=== PATIENT | female | born 1945 | race Two or more races ===

== ENCOUNTER 2017-05-08 15:41 | Observation (INO) | payer MEDICARE, MEDICAID ==
[2017-05-08] MEDS ORDERED: Aspirin 81 MG Tab.Chew PO ONE (15:59)
[2017-05-08] MEDS ORDERED: Sodium Chloride 0.9% 1,000 ML IV ONE (16:21)
--- NOTE | 2017-05-08 16:42 | EDM.PDOC ---
ED HPI GENERAL MEDICAL PROBLEM - General Chief Complaint: Chest Pain Stated Complaint: FELL--CHEST PAIN Time Seen by Provider: 05/08/17 15:45 Source of Information: Reports: Family, Field Assessor, Alf Records History Limitations: Reports: Altered Mental Status (dementia), Language Barrier - History of Present Illness INITIAL COMMENTS - FREE TEXT/NARRATIVE: 71-year-old female presents to emergency room brought in by regular vehicle for evaluation of not feeling well for the last 3 days, dizziness complaints and near syncopal episode without loss of consciousness. Patient has been in the halfway for approximately 4 years the last 3 year she's been at [facility]. She has significant history of dementia and early Alzheimer's and diabetes, chronic renal disease. She felt hungry earlier this afternoon and felt lightheaded and dizziness walking with her walker to the cafeteria. She is instructed to sit down. She did not fall or have the syncopal episode. She is brought in regular vehicle to the ER for further evaluation. She is a poor historian speak fluent Citizen [place]. Her niece works at the hospital translates most of her history for her which is not well known. Onset: Gradual Onset Date: 05/06/17 Duration: Day(s):, Waxing/Waning Location: Reports: Generalized Quality: Reports: Ache Severity: Moderate Improves with: Reports: None Worsens with: Reports: None Associated Symptoms: Reports: Chest Pain, Headaches, Other (dizziness) - Related Data Allergies Allergy/AdvReac Type Severity Reaction Status Date / Time No Known Drug Allergies Allergy Cannot Verified 08/25/16 08:33 Remember Home Meds: Home Meds ARIPiprazole [Abilify] 5 mg PO BEDTIME 06/01/14 [History] Acetaminophen [Non-Aspirin] 325 - 650 mg PO Q6HR PRN 06/01/14 [History] Doxercalciferol [Hectorol] 0.5 mcg PO ASDIRECTED 06/01/14 [History] Esomeprazole Magnesium [Nexium 24Hr] 40 mg PO DAILY 06/01/14 [History] Fenofibrate Nanocrystallized [Tricor] 48 mg PO BEDTIME 06/01/14 [History] Insulin Lispro [Humalog] 0 unit SQ ASDIRECTED 06/01/14 [History] Insulin Lispro [Humalog] 0 unit SUBCUT TID PRN 06/01/14 [History] Levothyroxine 25 mcg PO ACBRK 06/01/14 [History] Magnesium Hydroxide [Milk of Magnesia] 30 ml PO DAILY PRN 06/01/14 [History] Sennosides [Senokot] 2 tab PO DAILY 06/01/14 [History] Venlafaxine HCl [Venlafaxine ER] 300 mg PO DAILY 06/01/14 [History] atorvaSTATin [Lipitor] 40 mg PO DAILY@1700 06/01/14 [History] clonazePAM [Klonopin] 1 mg PO BID 06/01/14 [History] Phytonadione [Vitamin K] 100 mcg PO DAILY@1700 #0 06/03/14 [Rx] Atenolol 12.5 mg PO DAILY 08/24/16 [History] Cholecalciferol (Vitamin D3) [Vitamin D3] 2,000 unit PO DAILY 08/24/16 [History] Donepezil [Aricept] 10 mg PO BEDTIME 08/24/16 [History] Insulin Detemir [Levemir Flextouch] 45 unit SQ BID 08/24/16 [History] Melatonin/Pyridoxine HCl (B6) [Melatonin 3 mg Tablet] 1 each PO BEDTIME [History] Memantine [Namenda] 10 mg PO DAILY 08/24/16 [History] Polyethylene Glycol 3350 [MiraLAX] 17 gm PO DAILY 08/24/16 [History] Warfarin [Coumadin] 5 mg PO ASDIRECTED 08/24/16 [History] traMADol [Ultram] 50 mg PO Q6H PRN 08/24/16 [History] Past Medical History Cardiovascular History: Reports: Afib, CAD, Heart Valve Replacement, High Cholesterol, Hypertension Other Genitourinary History: chronic renal failure Neurological History: Reports: Alzheimers Disease Psychiatric History: Reports: Alzheimers Disease, Dementia, Depression Social & Family History - Tobacco Use Smoking Status *Q: Never Smoker - Caffeine Use Caffeine Use: Reports: Coffee, Tea - Alcohol Use Days Per Week of Alcohol Use: 0 - Recreational Drug Use Recreational Drug Use: No ED ROS GENERAL - Review of Systems Review Of Systems: ROS reveals no pertinent complaints other than HPI. Constitutional: Denies: Fever, Chills, Diaphoresis Respiratory: Reports: Shortness of Breath Cardiovascular: Reports: Chest Pain, Blood Pressure Problem Endocrine: Reports: High Glucose : Reports: Incontinence Neurological: Reports: Confusion, Other (dizziness) Psychiatric: Reports: Agitation, Depression Hematologic/Lymphatic: Reports: Anemia, Easy Bleeding Immunologic: Reports: No Symptoms ED EXAM, DIZZINESS - Physical Exam Exam: See Below Exam Limited By: Language Barrier General Appearance: Alert, WD/WN, No Apparent Distress Eye Exam: Bilateral Eye: EOMI, PERRL Ears: Normal External Exam, Normal Canal, Hearing Grossly Normal, Normal TMs Nose: Normal Inspection Throat/Mouth: Normal Inspection, Normal Lips, Normal Voice Head Exam: Atraumatic, Normocephalic Neck: Normal Inspection, Supple, Non-Tender. No: Carotid Bruit, Lymphadenopathy (L), Lymphadenopathy (R) Respiratory/Chest: No Respiratory Distress, Lungs Clear Cardiovascular: Normal Peripheral Pulses, Regular Rate, Rhythm, Systolic Murmur GI/Abdominal: Normal Bowel Sounds, Soft, Non-Tender EKG INTERPRETATION EKG Date: 05/08/17 Rhythm: NSR [place]: LAD-Left [place] Deviation P-Wave: Present QRS: LBBB ST-T: Normal QT: Normal Comparison: NA - No Prior EKG EKG Interpretation Comments: 1. Normal sinus rhythm 2. Left axis deviation 3. Left bundle branch block 4. Abnormal ECG Course - Vital Signs Last Recorded V/S: Last Vital Signs Temp 96.9 F 05/08/17 16:14 Pulse 60 05/08/17 16:14 Resp 18 05/08/17 16:14 BP 153/51 H 05/08/17 16:14 Pulse Ox 93 L 05/08/17 16:14 - Orders/Labs/Meds Orders: Active Orders 24 hr Category Date Time Status EKG Documentation Completion [RC] ASDIRECTED Care 05/08/17 15:53 Active CXR [Chest 2V] [CR] Stat Exams 05/08/17 15:52 Taken EKG 12 Lead [EK] Routine Ther 05/08/17 15:53 Ordered Labs: Laboratory Tests 05/08/17 05/08/17 05/08/17 Range/Units 16:12 16:30 16:30 WBC 8.5 (5.0-10.0) 10^3/uL RBC 4.42 (3.80-5.50) 10^6/uL Hgb 14.5 (12.0-16.0) g/dL Hct 43.9 (37.0-47.0) % MCV 99.4 H (82.0-92.0) fL MCH 32.8 H (27.0-31.0) pg MCHC 33.0 (32.0-36.0) g/dL RDW 12.3 (11.5-14.5) % Plt Count 193 (150-300) 10^3/uL MPV 8.8 (7.4-10.4) fL Neut % (Auto) 49.5 L (50.0-70.0) % Lymph % (Auto) 38.6 (20.0-40.0) % Real % (Auto) 7.1 (2.0-8.0) % Eos % (Auto) 4.0 H (1.0-3.0) % Baso % (Auto) 0.8 (0.0-1.0) % Neut # (Auto) 4.2 (2.5-7.0) 10^3/uL Lymph # (Auto) 3.3 (1.0-4.0) 10^3/uL Real # (Auto) 0.6 (0.1-0.8) 10^3/uL Eos # (Auto) 0.3 (0.1-0.3) 10^3/uL Baso # (Auto) 0.1 (0.0-0.1) 10^3/uL PT 20.7 H (8.9-11.4) SEC INR 2.1 H (0.9-1.1) Sodium (136-145) mmol/L Potassium (3.3-5.3) mmol/L Chloride (98-115) mmol/L Carbon Dioxide (21.0-32.0) mmol/L BUN (6-25) mg/dL Creatinine (0.51-1.17) mg/dL Est Cr Clr Drug Dosing mL/min Estimated GFR (MDRD) mL/min Glucose (70-110) mg/dL Calcium (8.7-10.3) mg/dL Troponin I (0.00-0.070) ng/mL B-Natriuretic Peptide (0-100) pg/mL Specimen Type Urinvoid Urine Color Light yellow (YELLOW) Urine Appearance Clear (CLEAR) Urine pH 5.5 (5.0-9.0) Ur Specific [place] 1.010 (1.005-1.030) Urine Protein Negative (NEGATIVE) mg/dL Urine Glucose (UA) 500 H (NEGATIVE) mg/dL Urine Ketones Negative (NEGATIVE) mg/dL Urine Occult Blood Negative (NEGATIVE) Urine Nitrite Negative (NEGATIVE) Urine Bilirubin Negative (NEGATIVE) Urine Urobilinogen 0.2 (0.2-1.0) E.U./dL Ur Leukocyte Esterase Small H (NEGATIVE) Urine RBC Not seen /HPF Urine WBC 20-30 H /HPF Ur Epithelial Cells Few /LPF Urine Bacteria Occasional (NONE TO FEW) /HPF 05/08/17 Range/Units 16:30 WBC (5.0-10.0) 10^3/uL RBC (3.80-5.50) 10^6/uL Hgb (12.0-16.0) g/dL Hct (37.0-47.0) % MCV (82.0-92.0) fL MCH (27.0-31.0) pg MCHC (32.0-36.0) g/dL RDW (11.5-14.5) % Plt Count (150-300) 10^3/uL MPV (7.4-10.4) fL Neut % (Auto) (50.0-70.0) % Lymph % (Auto) (20.0-40.0) % Real % (Auto) (2.0-8.0) % Eos % (Auto) (1.0-3.0) % Baso % (Auto) (0.0-1.0) % Neut # (Auto) (2.5-7.0) 10^3/uL Lymph # (Auto) (1.0-4.0) 10^3/uL Real # (Auto) (0.1-0.8) 10^3/uL Eos # (Auto) (0.1-0.3) 10^3/uL Baso # (Auto) (0.0-0.1) 10^3/uL PT (8.9-11.4) SEC INR (0.9-1.1) Sodium 138 (136-145) mmol/L Potassium 4.1 (3.3-5.3) mmol/L Chloride 102 (98-115) mmol/L Carbon Dioxide 22.5 (21.0-32.0) mmol/L BUN 28 H (6-25) mg/dL Creatinine 1.57 H (0.51-1.17) mg/dL Est Cr Clr Drug Dosing 23.95 mL/min Estimated GFR (MDRD) 33 mL/min Glucose 275 H (70-110) mg/dL Calcium 9.3 (8.7-10.3) mg/dL Troponin I 0.13 H* (0.00-0.070) ng/mL B-Natriuretic Peptide 30 (0-100) pg/mL Specimen Type Urine Color (YELLOW) Urine Appearance (CLEAR) Urine pH (5.0-9.0) Ur Specific [place] (1.005-1.030) Urine Protein (NEGATIVE) mg/dL Urine Glucose (UA) (NEGATIVE) mg/dL Urine Ketones (NEGATIVE) mg/dL Urine Occult Blood (NEGATIVE) Urine Nitrite (NEGATIVE) Urine Bilirubin (NEGATIVE) Urine Urobilinogen (0.2-1.0) E.U./dL Ur Leukocyte Esterase (NEGATIVE) Urine RBC /HPF Urine WBC /HPF Ur Epithelial Cells /LPF Urine Bacteria (NONE TO FEW) /HPF Meds: Medications Discontinued Medications Generic Name Dose Route Start Last Admin Trade Name Freq PRN Reason Stop Dose Admin Aspirin 324 mg 05/08/17 15:59 05/08/17 16:11 Aspirin PO 05/08/17 16:00 324 mg ONETIME ONE Administration Sodium Chloride 1,000 mls @ 999 mls/hr 05/08/17 16:21 05/08/17 16:35 Normal Saline IV 05/08/17 17:21 999 mls/hr .BOLUS ONE Administration - Radiology Interpretation Free Text/Narrative:: Chest x-ray 2 views Available There is no pneumonia or edema There is a prosthetic aortic valve the cardiomediastinal cart contour is moderately enlarged Impression No acute process Departure - Departure Time of Disposition: 17:35 Disposition: Refer to Observation Condition: Fair Clinical Impression: Dizziness, Atypical chest pain - Discharge Information - My Orders Last 24 Hours: My Active Orders 05/08/17 15:52 CXR [Chest 2V] [CR] Stat 05/08/17 15:53 EKG Documentation Completion [RC] ASDIRECTED EKG 12 Lead [EK] Routine - Assessment/Plan Last 24 Hours: My Active Orders 05/08/17 15:52 CXR [Chest 2V] [CR] Stat 05/08/17 15:53 EKG Documentation Completion [RC] ASDIRECTED EKG 12 Lead [EK] Routine Assessment:: Dizziness Atypical chest pain Plan: 1. I have discussed the findings and slightly elevated troponin level with family, specifically her niece. Patient is a DNR. They do not want to travel further treatment. She would like to be cared for here at this time. I discussed this with [facility] providers who will accept the patient. We'll place her on observational status, telemetry. Family is in agreement with this.
--- NOTE | 2017-05-08 18:24 | PCM.HP ---
H&P History of Present Illness - General Date of Service: 05/08/17 Admit Problem/Dx: Admission Diagnosis/Problem Admission Diagnosis/Problem Dizziness Chest pain with elevated troponin Source of Information: Family History Limitations: Reports: Altered Mental Status, Language Barrier - History of Present Illness Initial Comments - Free Text/Narative: 71 yo [place] speaking pt with dementia was brought to ER by private vehicle from [facility] [place]. Telephone call from nurse prior to ER arrival stated that pt was in the dining room, had chest pain and passed out. Complaints in ER were that pt had not been feeling well for the last 3 days. She felt hungry earlier this afternoon, felt lightheaded and dizzy walking with her walker to the cafeteria. She was instructed to sit down. She did not fall or have a syncopal episode. Pt's niece, Charlotte, has medical power of regulatory attorney for health care purposes. Charlotte states Pt told her that she was in her NH room, she was hungry and no one brought her her 2pm snack. She was angry when they didn't answer the call light so she started hitting her head against the wall. Now her head is hurting. Pt reported chest pain in ER and troponin is 0.13 at 5 pm today. Her EKG in ER is showing nl sinus rhythm with left axis deviation, left bundle branch block. There is no EKG available for comparison. CXR shows no acute process. She has a history of aortic valve replacement with metallic valve and is on coumadin. Her INR is 2.1 in ER. Pt has dementia and [facility]. She is on aricept, abilify and clonazepam. Pt has diabetes with blood sugars usually quite high. She is on tresiba 110 units daily. Pt has hypothyroidism and is on levothyroxine 25 mcg daily. Pt has hyperlipidemia and is on a combination of atrovastatin and tricor. Onset of Symptoms: Reports: Other (over the last 3 days) - Related Data Allergies/Adverse Reactions: Allergies Allergy/AdvReac Type Severity Reaction Status Date / Time No Known Drug Allergies Allergy Cannot Verified 08/25/16 08:33 Remember Home Medications: Home Meds Acetaminophen [Non-Aspirin] 650 mg PO Q6HR PRN 06/01/14 [History] Fenofibrate Nanocrystallized [Tricor] 54 mg PO BEDTIME 06/01/14 [History] Levothyroxine 25 mcg PO ACBRK 06/01/14 [History] Venlafaxine HCl [Venlafaxine ER] 225 mg PO DAILY 06/01/14 [History] atorvaSTATin [Lipitor] 40 mg PO DAILY@1700 06/01/14 [History] clonazePAM [Klonopin] 0.5 mg PO TID 06/01/14 [History] Phytonadione [Vitamin K] 100 mcg PO DAILY@1700 #0 06/03/14 [Rx] Atenolol 12.5 mg PO DAILY 08/24/16 [History] Cholecalciferol (Vitamin D3) [Vitamin D3] 2,000 unit PO DAILY 08/24/16 [History] Donepezil [Aricept] 10 mg PO BEDTIME 08/24/16 [History] Memantine [Namenda] 10 mg PO DAILY 08/24/16 [History] Polyethylene Glycol 3350 [MiraLAX] 17 gm PO DAILY PRN 08/24/16 [History] Warfarin [Coumadin] 5 mg PO ASDIRECTED 08/24/16 [History] ARIPiprazole [Aripiprazole] 5 mg PO DAILY 05/08/17 [History] Insulin Degludec [Tresiba Flextouch U-200] 110 units SUBCUT DAILY 05/08/17 [ History] Magnesium Hydroxide [Milk of Magnesia] 30 ml PO DAILY PRN 05/08/17 [History] Melatonin 3 mg PO BEDTIME 05/08/17 [History] Menthol [Biofreeze] 1 applic TP ASDIRECTED PRN 05/08/17 [History] Omeprazole 20 mg PO ASDIRECTED 05/08/17 [History] Sennosides/Docusate Sodium [Senna-S] 1 tab PO DAILY 05/08/17 [History] Warfarin [Coumadin] 2.5 mg PO ASDIRECTED 05/08/17 [History] Past Medical History Cardiovascular History: Reports: Afib, CAD, Heart Valve Replacement, High Cholesterol, Hypertension Other Genitourinary History: chronic renal failure Neurological History: Reports: Alzheimers Disease Psychiatric History: Reports: Alzheimers Disease, Dementia, Depression Social & Family History - Tobacco Use Smoking Status *Q: Never Smoker Second Hand Smoke Exposure: No - Caffeine Use Caffeine Use: Reports: Coffee, Tea - Alcohol Use Days Per Week of Alcohol Use: 0 - Recreational Drug Use Recreational Drug Use: No H&P Review of Systems - Review of Systems: Review Of Systems: See Below (ROS by pt is unreliable as she answers positively to every question. Yes she has headache, yes to chest pain, yes to shortness of breath, yest to abdominal pain, yes to urinary problems, yes to constipation.) Exam - Exam Exam: See Below - Vital Signs Vital Signs: Last Vital Signs Temp 96.9 F 05/08/17 16:14 Pulse 60 05/08/17 16:14 Resp 18 05/08/17 16:14 BP 153/51 H 05/08/17 16:14 Pulse Ox 93 L 05/08/17 16:14 Weight: 159 lb 6.4 oz - Exam General: Alert HEENT: Conjunctiva Clear Neck: Supple Lungs: Clear to Auscultation Cardiovascular: Other (heart rate regular with valve click and S1 murmur) Extremities: Normal Inspection, No Pedal Edema Skin: Warm, Intact, Other (superficial abraison to dorsal surface of right hand. No open areas. bilateral hands puffy, symetrical.) Neuro Extensive - Mental Status: Other (dementia. data from her is unreliable) Psychiatric: Other (dementia) - Patient Data Result Diagrams: 05/08/17 16:30 05/08/17 16:30 EKG INTERPRETATION EKG Date: 05/08/17 (in ER) Rhythm: Other (nl sinus rhythm with left axis deviation, left bundle branch block.) QRS: LBBB Comparison: NA - No Prior EKG *Q Meaningful Use (ADM) - VTE *Q VTE Criteria *Q: - Stroke *Q Stroke Criteria *Q: - AMI *Q AMI Criteria *Q: Problem List Initiated/Reviewed/Updated: Yes Orders Last 24hrs: Active Orders 24 hr Category Date Time Status Patient Status [ADT] Routine ADT 05/08/17 17:54 Ordered Vital Signs [RC] Q4H Care 05/08/17 17:54 Active Assessment/Plan Comment:: 1. Chest pain with mildly elevated troponin. Charlotte Rosenbaum, states she has the medical power of regulatory attorney. She states pt is to be DNR/DNI. They do not want a transfer to [facility]. They do not want any invasive treatment. She will talk with her father/pt's brother and if there are any changes, she will let us know. They are in agreement with pt being hospitalized in observation, repeat troponins x 3. Will repeat troponin at 11 pm tonight and routine AM labs. 2. Diabetes. Blood sugars routinely run high (around 400s) per Charlotte. She states when the blood sugars are around 200, pt starts showing signs of hypoglycemia.- gets hungry, shakey, mental status changes. Will monitor blood sugars tid with meals and hs. Continue same tresiba insulin as in the shelter. 3. Hyperlipidemia with triglyceridemia: continue tricor and lipitor 3. Hypothyroidism: continue levothyroxine. Most recent TSH was WNL within the last year. 4. History of gastritis with chronic complaints of abdominal pain. Continue Carafate and omeprazole per NH schedule. 5. History of Aortic Valve replacement with metal valve. History of Afib. INR in Am. Dose coumadin per INR results. Continue vitamin K for stabilization. Continue atenolol for rate control. 6. Constipation: continue miralax 7. Dementia with depression and anxiety: continue Aricept, Namenda, abilify, klonopin and effexor XR 225 mg daily.
[2017-05-08] MEDS ORDERED: Sodium Chloride 0.9% 1,000 ML IV SCH (19:00)
[2017-05-08] MEDS ORDERED: Acetaminophen 325 MG Tab PO PRN (19:20)
[2017-05-08] MEDS ORDERED: Magnesium Hydroxide 400 MG/5 ML Susp 30 ML Cup PO PRN (19:20)
[2017-05-08] MEDS ORDERED: Polyethylene Glycol 3350 Powder 17 GM Packet PO PRN (19:20)
[2017-05-08] MEDS ORDERED: atorvaSTATin 40 MG Tab PO SCH (19:35)
[2017-05-08] MEDS: ClonazePAM 0.5 MG Tab PO SCH (20:53)
[2017-05-08] MEDS ORDERED: Fenofibrate Nanocrystallized 145 MG Tab PO SCH (21:00)
[2017-05-08] MEDS ORDERED: Warfarin 2.5 MG Tab PO SCH (21:00)
[2017-05-08] MEDS ORDERED: Donepezil 10 MG Tab PO SCH (21:00)
[2017-05-08] MEDS ORDERED: Omeprazole 20 MG Cap.CR PO SCH (21:00)
[2017-05-08] MEDS ORDERED: Melatonin 3 MG Tab PO SCH (21:00)
[2017-05-09] MEDS ORDERED: Levothyroxine 25 MCG Tab PO SCH (07:00)
[2017-05-09] MEDS ORDERED: Cholecalciferol (Vitamin D3) 1,000 Unit Tab PO SCH (09:00)
[2017-05-09] MEDS ORDERED: Memantine 10 MG Tab PO SCH (09:00)
[2017-05-09] MEDS ORDERED: Venlafaxine 37.5 MG Tab.ER PO SCH (09:00)
[2017-05-09] MEDS ORDERED: INSULIN DEGLUDEC 110 UNIT SUBCUT SCH (09:00)
[2017-05-09] MEDS ORDERED: Atenolol 25 MG Tab PO SCH (09:00)
[2017-05-09] MEDS ORDERED: ARIPiprazole 5 MG Tab PO SCH (09:00)
[2017-05-09] MEDS: ClonazePAM 0.5 MG Tab PO SCH (09:05)
--- NOTE | 2017-05-09 09:53 | PCM.DCSUM1 ---
Discharge Summary - Hospital Course Free Text/Narrative:: Ms. Mix is a 71yoF with history notable for dementia, uncontrolled DMT2, HLD , and aortic valve replacement on anticoagulation admitted on 05/08/17 from the ED for an elevated troponin after presenting for an episode of pre-syncope in which she felt lightheaded and dizziness and was instructed to sit down. She had downtrending of troponin and clinical improvement throughout her stay without any complaints on the morning of discharge and deemed ready for discharge back to [facility] on 05/09/17. She and [facility] and [facility], [place], reiterated her wishes to not have any aggressive measures and question if she would even want to be readmitted to the hospital in the future. They will discuss this further with family and address on next correction rounds with Dr. Ally Whitfield or Ariana Isaac PA-C. # NSTEMI: Troponin 0.13 on admission, subsequently downtrended to 0.11 and 0.08. EKG with NSR, LAD, and LBBB with no prior EKG for comparison. Telemetry without arrhythmia throughout stay. No recurrent chest pain throughout stay. She and [place] reiterated wishes to avoid any aggressive work-up or management. Continue BB, statin, and anticoagulation. # Pre-syncope: No complaints on the morning of discharge. She and [place] reiterated wishes to avoid any imaging work-up or management. Chronic conditions: # Hx aortic valve replacement: Stable. Continued warfarin anticoagulation with vitamin K stabilization. # DMT2: Poorly controlled at baseline with signs of hypoglycemia if patient has BG <200. Continued home insulin regimen. # HLD: Continued statin and fenofibrate. # Hypothyroidism: TSH wnl. Continued levothyroxine. # Hx gastritis: Stable. Continued omeprazole and sucralfate. # Constipation: Stable. Continued Senna and prns. # Dementia with behavioral disturbance, depression, and anxiety: Stable. Continued Aricept, Namenda, Ability, Effexor, and clonazepam. - Discharge Data Discharge Date: 05/09/17 Discharge Disposition: DC/Tfer to SNF 03 Condition: Fair - Patient Instructions Diet: Usual Diet as Tolerated Activity: As Tolerated Showering/Bathing: November Shower Notify Provider of: Fever, Increased Pain - Discharge Plan Home Medications: Home Meds Acetaminophen [Non-Aspirin] 650 mg PO Q6HR PRN 06/01/14 [History] Fenofibrate Nanocrystallized [Tricor] 54 mg PO BEDTIME 06/01/14 [History] Levothyroxine 25 mcg PO ACBRK 06/01/14 [History] Venlafaxine HCl [Venlafaxine ER] 225 mg PO DAILY 06/01/14 [History] atorvaSTATin [Lipitor] 40 mg PO DAILY@1700 06/01/14 [History] clonazePAM [Klonopin] 0.5 mg PO BID 06/01/14 [History] Phytonadione [Vitamin K] 100 mcg PO DAILY@1700 #0 06/03/14 [Rx] Atenolol 12.5 mg PO DAILY 08/24/16 [History] Cholecalciferol (Vitamin D3) [Vitamin D3] 2,000 unit PO DAILY 08/24/16 [History] Donepezil [Aricept] 10 mg PO BEDTIME 08/24/16 [History] Memantine [Namenda] 10 mg PO BEDTIME 08/24/16 [History] Polyethylene Glycol 3350 [MiraLAX] 17 gm PO DAILY PRN 08/24/16 [History] Warfarin [Coumadin] 5 mg PO MOFR@1800 08/24/16 [History] ARIPiprazole [Aripiprazole] 5 mg PO DAILY 05/08/17 [History] Insulin Degludec [Tresiba Flextouch U-200] 110 units SUBCUT DAILY@0700 05/08/17 [History] Magnesium Hydroxide [Milk of Magnesia] 30 ml PO Q72H PRN 05/08/17 [History] Melatonin 3 mg PO BEDTIME 05/08/17 [History] Menthol [Biofreeze] 1 applic TP BEDTIME PRN 05/08/17 [History] Omeprazole 20 mg PO ASDIRECTED 05/08/17 [History] Sennosides/Docusate Sodium [Senna-S] 1 tab PO DAILY 05/08/17 [History] Warfarin [Coumadin] 2.5 mg PO SUTUWETHSA@1800 05/08/17 [History] Acetaminophen [Mapap] 650 mg PO BID@0500,1700 05/09/17 [History] Orajel Denture Gel 10% 1 applic MUCMEM QID PRN 05/09/17 [History] Referrals: Ally Whitfield MD [Primary Care Provider] - (To be seen next time on rounds by Dr. Ally Whitfield or Ariana Isaac PA-C) - Discharge Summary/Plan Comment DC Time >30 min.: Yes - General Info Subjective Update: Ms. Mix reports feeling well this morning. She is accompanied by her niece and [facility], [place], who also states that she seems to be doing quite well this morning. Since admission, she has denied any recurrent chest pain. She ate breakfast without difficulty this morning. Has ambulated to the bathroom and back without any lightheadedness, dizziness, or other complaints. She denies any pain this morning. She and [place] reiterate that she would not want any aggressive cares, including surgery, catheterization, or detailed imaging tests such as CT scan or MRI. They both question if she would even want to be admitted to the hospital again. They have never had a detailed discussion about this, but would like to think about further and discuss at her next correction visit in order to clarify plans for the future. - Patient Data Vitals - Most Recent: Last Vital Signs Temp 36.5 C 05/09/17 06:48 Pulse 63 05/09/17 09:05 Resp 16 05/09/17 06:48 BP 116/68 05/09/17 09:05 Pulse Ox 95 05/09/17 06:48 Weight - Most Recent: 72.303 kg I&O - Last 24 hours: Intake & Output 05/08/17 05/09/17 05/09/17 22:59 06:59 14:59 Intake Total 360 773 245 Output Total 600 1500 Balance -240 -727 245 Lab Results - Last 24 hrs: Laboratory Results - last 24 hr 05/08/17 05/08/17 05/08/17 Range/Units 20:47 22:55 22:55 WBC 8.4 (5.0-10.0) 10^3/uL RBC 3.82 (3.80-5.50) 10^6/uL Hgb 12.8 (12.0-16.0) g/dL Hct 37.9 (37.0-47.0) % MCV 99.3 H (82.0-92.0) fL MCH 33.5 H (27.0-31.0) pg MCHC 33.7 (32.0-36.0) g/dL RDW 12.2 (11.5-14.5) % Plt Count 149 L (150-300) 10^3/uL MPV 8.5 (7.4-10.4) fL PT (8.9-11.4) SEC INR (0.9-1.1) Sodium (136-145) mmol/L Potassium (3.3-5.3) mmol/L Chloride (98-115) mmol/L Carbon Dioxide (21.0-32.0) mmol/L BUN (6-25) mg/dL Creatinine (0.51-1.17) mg/dL Est Cr Clr Drug Dosing mL/min Estimated GFR (MDRD) mL/min Glucose (70-110) mg/dL POC Glucose 159 H (74-106) mg/dl Calcium (8.7-10.3) mg/dL Total Bilirubin (0.2-1.0) mg/dL AST (15-37) U/L ALT (12-78) U/L Alkaline Phosphatase (46-116) IU/L Troponin I 0.11 H* (0.00-0.070) ng/mL Total Protein (6.4-8.2) g/dL Albumin (3.00-4.80) g/dL 05/09/17 05/09/17 Range/Units 07:10 07:10 WBC (5.0-10.0) 10^3/uL RBC (3.80-5.50) 10^6/uL Hgb (12.0-16.0) g/dL Hct (37.0-47.0) % MCV (82.0-92.0) fL MCH (27.0-31.0) pg MCHC (32.0-36.0) g/dL RDW (11.5-14.5) % Plt Count (150-300) 10^3/uL MPV (7.4-10.4) fL PT 19.1 H (8.9-11.4) SEC INR 1.9 H (0.9-1.1) Sodium 144 (136-145) mmol/L Potassium 3.9 (3.3-5.3) mmol/L Chloride 111 (98-115) mmol/L Carbon Dioxide 23.6 (21.0-32.0) mmol/L BUN 21 (6-25) mg/dL Creatinine 1.34 H (0.51-1.17) mg/dL Est Cr Clr Drug Dosing 28.06 mL/min Estimated GFR (MDRD) 39 mL/min Glucose 159 H (70-110) mg/dL POC Glucose (74-106) mg/dl Calcium 8.6 L (8.7-10.3) mg/dL Total Bilirubin 0.5 (0.2-1.0) mg/dL AST 38 H (15-37) U/L ALT 25 (12-78) U/L Alkaline Phosphatase 66 (46-116) IU/L Troponin I 0.08 H* (0.00-0.070) ng/mL Total Protein 6.6 (6.4-8.2) g/dL Albumin 2.98 L (3.00-4.80) g/dL Med Orders - Current: Current Medications Acetaminophen (Tylenol) 650 mg PO Q6HR PRN PRN Reason: Pain Aripiprazole (Abilify) 5 mg PO DAILY [facility] Atenolol (Tenormin) 12.5 mg PO DAILY [facility] Last Admin: 05/09/17 09:05 Dose: 12.5 mg Atorvastatin Calcium (Lipitor) 40 mg PO DAILY@1700 [facility] Last Admin: 05/08/17 19:46 Dose: 40 mg Cholecalciferol (Vitamin D3) 2,000 units PO DAILY [facility] Last Admin: 05/09/17 09:05 Dose: 2,000 units Clonazepam (Klonopin) 0.5 mg PO TID [facility] Last Admin: 05/09/17 09:05 Dose: 0.5 mg Donepezil HCl (Aricept) 10 mg PO BEDTIME [facility] Last Admin: 05/08/17 20:53 Dose: 10 mg Fenofibrate (Tricor) 54 mg PO BEDTIME [facility] Sodium Chloride (Normal Saline) 1,000 mls @ 75 mls/hr IV ASDIRECTED [facility] Last Admin: 05/08/17 19:51 Dose: 75 mls/hr Levothyroxine Sodium (Levothyroxine) 25 mcg PO ACBRK [facility] Last Admin: 05/09/17 06:10 Dose: 25 mcg Magnesium Hydroxide (Milk Of Magnesia) 30 ml PO DAILY PRN PRN Reason: Constipation Melatonin (Melatonin) 3 mg PO BEDTIME [facility] Last Admin: 05/08/17 20:53 Dose: 3 mg Memantine (Namenda) 10 mg PO DAILY [facility] Last Admin: 05/09/17 09:05 Dose: 10 mg Non-Formulary Medication (Insulin Degludec) 110 units SUBCUT DAILY [facility] Omeprazole (Omeprazole) 20 mg PO Q48H [facility] Phytonadione (Vitamin K) 100 mcg PO DAILY@1700 [facility] Polyethylene Glycol (Miralax) 17 gm PO DAILY PRN PRN Reason: Constipation Senna/Docusate Sodium (Senna Plus) 1 tab PO DAILY [facility] Last Admin: 05/09/17 09:05 Dose: 1 tab Venlafaxine HCl (Effexor Xr) 225 mg PO DAILY [facility] Warfarin Sodium (Coumadin) 2.5 mg PO SuTuWeThSa@1800 [facility] Last Admin: 05/08/17 21:27 Dose: Not Given Warfarin Sodium (Coumadin) 5 mg PO MoFr@1800 [facility] Discontinued Medications Aspirin (Aspirin) 324 mg PO ONETIME ONE Stop: 05/08/17 16:00 Last Admin: 05/08/17 16:11 Dose: 324 mg Sodium Chloride (Normal Saline) 1,000 mls @ 999 mls/hr IV .BOLUS ONE Stop: 05/08/17 17:21 Last Admin: 05/08/17 16:35 Dose: 999 mls/hr Omeprazole (Omeprazole) 20 mg PO ASDIRECTED [facility] - Exam Physical Findings Comments:: GENERAL: Well-appearing elderly female in no acute distress. Niece [place] at bedside. HEENT: Normocephalic, atraumatic. Conjunctiva clear, pupils equal round and reactive to light, extraocular movements intact. Nares patent without discharge. Mucous membranes moist. NECK: Supple, no masses. CV: Regular rate and rhythm, no murmurs, rubs, or gallops. 2+ radial pulses. PULMONARY: Normal effort, clear to auscultation bilaterally, no wheezes, rales, or rhonchi. ABDOMEN: Positive bowel sounds, soft, nontender, nondistended. EXTREMITIES: No edema, cyanosis, or clubbing. MUSCULOSKELETAL: Moves all extremities well. NEUROLOGICAL: CN II-XII normal. Sensation intact to light touch in distal extremities. Strength 5/5 in distal extremities. [id number] testing normal. DERMATOLOGIC: No rashes or suspicious lesions in exposed areas. PSYCHIATRIC: Alert, oriented to person/place/situation, interactive. *Q Meaningful Use (DIS) - VTE *Q VTE Criteria *Q: - Stroke *Q Stroke Criteria *Q: - AMI *Q AMI Criteria *Q:
[2017-05-09 11:21] VITALS: BP 153/75
[2017-05-09] MEDS ORDERED: Phytonadione 100 MCG Tab PO SCH (17:00)
[2017-05-09] MEDS ORDERED: Warfarin 5 MG Tab PO SCH (18:00)
[2017-05-10] MEDS ORDERED: Omeprazole 20 MG Cap.CR PO SCH (07:30)
== END 2017-05-09 11:37 ==
LOC: KA.ED 15:41 → KA.MS 17:37
PROVIDERS: ADMIT Physician Assistant; ATTEND Family Medicine
DX: I21.4 Non-ST elevation (NSTEMI) myocardial infarction (principal); R55 Syncope and collapse; E11.69 Type 2 diabetes mellitus with other specified complication; E78.5 Hyperlipidemia, unspecified; E03.9 Hypothyroidism, unspecified; K59.00 Constipation, unspecified; F02.81 Dementia in other diseases classified elsewhere, unspecified severity, with behavioral disturbance; G30.9 Alzheimer's disease, unspecified; F32.9 Major depressive disorder, single episode, unspecified; F41.9 Anxiety disorder, unspecified; I12.9 Hypertensive chronic kidney disease with stage 1 through stage 4 chronic kidney disease, or unspecified chronic kidney disease; E11.22 Type 2 diabetes mellitus with diabetic chronic kidney disease; N18.9 Chronic kidney disease, unspecified; I48.91 Unspecified atrial fibrillation; I25.10 Atherosclerotic heart disease of native coronary artery without angina pectoris; E78.00 Pure hypercholesterolemia, unspecified; Z79.4 Long term (current) use of insulin; Z79.01 Long term (current) use of anticoagulants; Z79.899 Other long term (current) drug therapy; R06.02 Shortness of breath
CPT/HCPCS: 36415; 71020; 80048; 80053; 81001; 82962; 83880; 84484; 85025; 85027; 85610; 93005; 96360; 96361; 99284; 99285; A9270; G0378; J7030